=== PATIENT | male | born 1930 | race Caucasian/White ===

== ENCOUNTER 2017-04-17 09:42 | Observation (INO) | payer MEDICARE, BC ==
[2017-04-17] VITALS (12 sets, daily range): BP systolic 116–161; BP diastolic 61–87; PULSE 106–147; RESP 20–36; TEMP 96.9–100.3; O2SAT 95–98
[~2017-04-17] VITALS: Ht 180.3 cm; Wt 56.0 kg
[~2017-04-17 09:42] MED LIST: ADVA250A INH; IPRA17I INH; PRED10PA PO; PRED50 PO; ZITH250T PO
[2017-04-17] MEDS: RESP: ALBUTEROL 2.5 MG/IPRATROPIUM 0.5 MG NEB (SCH) INH ×2 (09:55→09:56)
--- NOTE | 2017-04-17 09:55 | PD ---
HPI Chief Complaint: sob Time Seen by Provider: 09:51 Travel History International Travel<30 days: No Contact w/Intl Traveler<30days: No History of Present Illness HPI 86yo M with PMH of COPD presents to the ED with c/o worsening sob for 2-3 days. +Cough. Pt is oxygen dependent and on 3L NC. Denies any fever, chest pain, n /v, abdominal pain, focal weakness or numbness. 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 [facility] Past Medical History Arthritis: Yes Asthma: No Blood Disorders: No Cancer: No Cardiovascular Problems: No COPD: Yes Diminished Hearing: No Endocrine: No Genitourinary: No Immune Disorder: No Musculoskeletal: Yes Neurologic: No Psychiatric: No Reproductive: No Respiratory: Yes ("SPOTS ON LUNGS" NOT DOING ANYTHING FOR) Sleep Apnea: No Past Surgical History Abdominal Surgery: Yes (WILIAM) Body Medical Devices: HYPOGLYCEMIA Cholecystectomy: Yes Genitourinary Surgery: Yes (TUMORS IN BLADDER) Oral Surgery: Yes (TONSILLECTOMY) Tonsillectomy: Yes Other Surgery: Yes Social History Alcohol Use: No Tobacco Use: No Substance Use: No Allergies-Medications (Allergen,Severity, Reaction): Coded Allergies: No Known Allergies (Verified , 04/17/17) Reported Meds & Prescriptions Reported Meds & Active Scripts Active Reported Duoneb (Ipratropium-Albuterol Neb) 0.5-2.5 Mg/3 Ml Neb 1 Nebule INH Q4HR NEB Mucinex (Guaifenesin) 1,200 Mg Tab.er.12h 600 Mg PO DAILY Ventolin Hfa 18 GM Inh (Albuterol Sulfate) 90 Mcg/Act Aer 2 Puff INH Q4-6H PRN Breo Ellipta Inh (Fluticasone/Vilanterol) 200-25 Mcg/Act Inh 1 Puff INH DAILY Use daily at the same time. Prednisone 10 Mg Tab 10 Mg PO DAILY Review of Systems Except as stated in HPI: all other systems reviewed are Neg Physical Exam Narrative GENERAL: 86yo M in moderate distress. SKIN: Focused skin assessment warm/dry. HEAD: Atraumatic. Normocephalic. EYES: Pupils equal and round. No scleral icterus. No injection or drainage. ENT: No nasal bleeding or discharge. Mucous membranes pink and moist. NECK: Trachea midline. No JVD. CARDIOVASCULAR: Regular rate and rhythm. No murmur appreciated. RESPIRATORY: + accessory muscle use. +Suprasternal retractions. Coarse breath sounds bilaterally. Breath sounds equal bilaterally. GASTROINTESTINAL: Abdomen soft, non-tender, nondistended. MUSCULOSKELETAL: No obvious deformities. No clubbing. No cyanosis. No edema. NEUROLOGICAL: Awake and alert. No obvious cranial nerve deficits. Motor grossly within normal limits. Normal speech. PSYCHIATRIC: Appropriate mood and affect; insight and judgment normal. Data Data Last Documented VS Vital Signs Date Time Temp Pulse Resp B/P Pulse Ox O2 Delivery O2 Flow Rate FiO2 04/17/17 12:00 118 20 118/61 95 Nasal Cannula 3 04/17/17 10:13 100.0 Orders Complete Blood Count With Diff (04/17/17 09:49) Basic Metabolic Panel (Bmp) (04/17/17 09:49) B-Type Natriuretic Peptide (04/17/17 09:49) Act Partial Throm Time (Ptt) (04/17/17 09:49) Prothrombin Time / Inr (Pt) (04/17/17 09:49) Magnesium (Mg) (04/17/17 09:49) Ckmb (Isoenzyme) Profile (04/17/17 09:49) Troponin I (04/17/17 09:49) Arterial Blood Gas (Abg) (04/17/17 09:49) Blood Culture (04/17/17 09:49) Iv Access Insert/Monitor (04/17/17 09:49) Ecg Monitoring (04/17/17 09:49) Oximetry (04/17/17 09:49) Oxygen Administration (04/17/17 09:49) Chest, Single Ap (04/17/17 09:49) Sodium Chloride 0.9% Flush (Ns Flush) (04/17/17 10:00) Methylprednisolone So Succ Inj (Solumedr (04/17/17 10:00) Albuterol-Ipratropium Neb (Duoneb Neb) (04/17/17 10:00) Sodium Chlor 0.9% 1000 Ml Inj (Ns 1000 M (04/17/17 10:00) Lactic Acid Sepsis Protocol (04/17/17 09:50) Ceftriaxone Inj (Rocephin Inj) (04/17/17 10:45) Azithromycin Inj (Zithromax Inj) (04/17/17 10:45) Vancomycin Inj (Vancomycin Inj) (04/17/17 11:00) Piperacil-Tazo 2.25 Gm Premix (Zosyn 2.2 (04/17/17 11:00) Sodium Chlor 0.9% 1000 Ml Inj (Ns 1000 M (04/17/17 11:00) Admit Order (Ed Use Only) (04/17/17 12:19) Labs Laboratory Tests Test 04/17/17 04/17/17 04/17/17 09:57 09:58 11:07 White Blood Count 20.0 TH/MM3 Red Blood Count 4.57 MIL/MM3 Hemoglobin 13.4 GM/DL Hematocrit 42.1 % Mean Corpuscular Volume 92.0 FL Mean Corpuscular Hemoglobin 29.4 PG Mean Corpuscular Hemoglobin 31.9 % Concent Red Cell Distribution Width 13.6 % Platelet Count 342 TH/MM3 Mean Platelet Volume 7.4 FL Neutrophils (%) (Auto) 87.8 % Lymphocytes (%) (Auto) 3.2 % Monocytes (%) (Auto) 6.4 % Eosinophils (%) (Auto) 0.3 % Basophils (%) (Auto) 2.3 % Neutrophils # (Auto) 17.5 TH/MM3 Lymphocytes # (Auto) 0.6 TH/MM3 Monocytes # (Auto) 1.3 TH/MM3 Eosinophils # (Auto) 0.1 TH/MM3 Basophils # (Auto) 0.5 TH/MM3 CBC Comment AUTO DIFF Differential Total Cells 100 Counted Neutrophils % (Manual) 81 % Band Neutrophils % 10 % Lymphocytes % 1 % Monocytes % 7 % Eosinophils % 1 % Neutrophils # (Manual) 18.2 TH/MM3 Differential Comment FINAL DIFF MANUAL Platelet Estimate NORMAL Platelet Morphology Comment NORMAL Red Cell Morphology Comment NORMAL Prothrombin Time 11.0 SEC Prothromb Time International 1.0 RATIO Ratio Activated Partial 29.4 SEC Thromboplast Time Lactic Acid Level 1.7 mmol/L B-Type Natriuretic Peptide 11 PG/ML Blood Gas Puncture Site LT RADIAL Blood Gas Patient Temperature 98.6 Blood Gas HCO3 32 mmol/L Blood Gas Base Excess 7.7 mmol/L Blood Gas Oxygen Saturation 93 % Arterial Blood pH 7.46 Arterial Blood Partial 46 mmHG Pressure CO2 Arterial Blood Partial 69 mmHG Pressure O2 Arterial Blood Oxygen Content 16.4 Vol % Arterial Blood 2.1 % Carboxyhemoglobin Arterial Blood Methemoglobin 1.0 % Blood Gas Hemoglobin 12.6 G/DL Oxygen Delivery Device NASAL CANNULA Blood Gas Liter Flow 3 L/M Blood Gas Inspired Oxygen 32 % Sodium Level 141 MEQ/L Potassium Level 3.7 MEQ/L Chloride Level 101 MEQ/L Carbon Dioxide Level 33.3 MEQ/L Anion Gap 7 MEQ/L Blood Urea Nitrogen 13 MG/DL Creatinine 0.48 MG/DL Estimat Glomerular Filtration 166 ML/MIN Rate Random Glucose 133 MG/DL Calcium Level 8.9 MG/DL Magnesium Level 2.2 MG/DL Total Creatine Kinase 15 U/L Troponin I LESS THAN 0.02 NG/ML MDM Medical Decision Making Medical Screen Exam Complete: Yes Emergency Medical Condition: Yes Interpretation(s) EKG: Sinus tachycardia at 133 bpm. Normal axis. RAD. Differential Diagnosis COPD exacerbation vs. Pneumonia vs. ACS vs. CHF vs. PE Narrative Course 86yo M with sob for 2-3 days. Pt follows with roofer vinyl coating Dr. Bowen and states finished a course of cefuroxime in February and another course of cefuroxime 03/31/17-04/07/17. Pt was in sinus tachycardia in the 130s on arrival. Coarse breath sounds bilaterally. Pt given duonebs x3 and methylprednisolone. Labs reviewed, leukocytosis at 20,000 with 10% bands. BNP 11. Lactic acid 1.7. Troponin negative. Pt was initially saturating in the 80s on 3 L nasal cannula on his own oxygen but his tank is almost empty and he was saturating at 94% on our 3L NC. CXR showed background emphysema and bilateral mid upper zone airspace consolidation peripherally. 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 Pt already knows this. States he was told that he would not be a candidate for chemo or radiation so he does not want further work up such as biopsy. Pt given NS IVF x2 and heart rate has decreased to 110s. Pt given vancomycin and zosyn. Pt reevaluated at bedside and states sob improved after treatments. Discussed with hospitalist Dr. [place] and accepted to his service. Critical Care Narrative Aggregate critical care time was 50 minutes. Time to perform other separately billable procedures was not included in the critical care time. My time did not include minutes spent treating any other patients simultaneously or on activities that did not directly contribute to the patient's treatment. The services I provided to this patient were to treat and/or prevent clinically significant deterioration that could result in: cardiovascular collapse or . I provided critical care services requiring my management, as noted below: Chart data review, documentation time, medication orders and management, vital sign assessments/reviewing monitor data, ordering and reviewing lab tests, ordering and interpreting/reviewing x-rays and diagnostic studies, care of the patient and discussion of the patient with the admitting physicians. Sepsis Criteria SIRS Criteria (2 or more): Heart rate over 90, WBC > 97881, < 4000 or > 10% bands Sepsis Criteria (SIRS+source): Infect source susp/known Diagnosis Primary Impression: Bilateral pneumonia Qualified Code: J18.9 - Pneumonia of both lungs due to infectious organism, unspecified part of lung Admitting Information Admitting Physician Requests: Admit Little Keating DO April 17, 2017 09:55
[2017-04-17] MEDS ORDERED: methylPREDNISolone SOD SUCC 125 MG/2 ML VIAL IVP ONE (10:00)
[2017-04-17] MEDS ORDERED: SODIUM CHLORIDE 0.9% FLUSH 10 ML FLUSH IVF PRN (10:00)
[2017-04-17] MEDS ORDERED: SODIUM CHLOR 0.9% 1000 ML INJ 1,000 ML IV ONE ×2 (10:00→11:00)
[2017-04-17 10:07] LABS: BLOOD GAS BASE EXCESS 7.7 mmol/L (-2-2); BLOOD GAS CARBOXYHEMOGLOBIN 2.1 % (0-4); BLOOD GAS HCO3 32 mmol/L (22-26); BLOOD GAS O2 HGB SATURATION 93 % (90-100); BLOOD GAS OXYGEN CONTENT 16.4 Vol % (12.0-20.0); BLOOD GAS PCO2 46 mmHG (38-42); BLOOD GAS PO2 69 mmHG (61-120); BLOOD GAS TOTAL HGB 12.6 G/DL (12.0-16.0); CRITICAL VALUE NO; DRAW SITE LT RADIAL; FIO2 32 %; LITER FLOW 3 L/M; NUMBER OF ARTERIAL PUNCTURES 1; OXYGEN DEVICE NASAL CANNULA; TEMP CORR TO 98.6; ULNAR PULSE PRESENT
[2017-04-17 10:08] LABS: STAT YES
[2017-04-17] MEDS ORDERED: GUAI1TAB18 PO (10:11)
[2017-04-17] MEDS ORDERED: VENTAER INH (10:11)
[2017-04-17] MEDS ORDERED: PRED10 PO (10:11)
[2017-04-17] MEDS ORDERED: FLUT1INH7 INH (10:11)
[2017-04-17] MEDS ORDERED: IPRASOL INH (10:11)
[2017-04-17 10:18] LABS: AUTOMATED NEUTROPHIL # 17.5 TH/MM3 (1.8-7.7); BASOPHIL # 0.5 TH/MM3 (0-0.2); BASOPHIL % 2.3 % (0.0-2.0); EOSINOPHIL # 0.1 TH/MM3 (0-0.4); EOSINOPHIL % 0.3 % (0.0-4.0); HEMATOCRIT 42.1 % (39.0-51.0); LYMPH % 3.2 % (9.0-44.0); LYMPHOCYTE # 0.6 TH/MM3 (1.0-4.8); MEAN CORPUSCULAR HEMOGLOBIN 29.4 PG (27.0-34.0); MEAN CORPUSCULAR HGB CONC 31.9 % (32.0-36.0); MONO % 6.4 % (0.0-8.0); NEUT % 87.8 % (16.0-70.0); PLATELET COUNT 342 TH/MM3 (150-450); RED BLOOD COUNT 4.57 MIL/MM3 (4.50-5.90); RED CELL DISTRIBUTION WIDTH 13.6 % (11.6-17.2)
[2017-04-17 10:19] LABS: APTT (PATIENT) 29.4 SEC (24.3-30.1); HEMO FLAGS AUTO DIFF
[2017-04-17 10:35] LABS: BANDS 10 % (0-6); EOSINOPHILS 1 % (0-4); NEUTROPHIL # MANUAL DIFF 18.2 TH/MM3 (1.8-7.7); PLATELET ESTIMATE SMEAR NORMAL (NORMAL); PLATELET MORPHOLOGY NORMAL (NORMAL); POLYS (SEG NEUTROPHILS) 81 % (16-70); SCAN/DIFF FINAL DIFF MANUAL; WBC DIFF SAMPLE 100
[2017-04-17] MEDS ORDERED: AZITHROMYCIN INJ 500 MG in SODIUM CHLOR 0.9% 250 ML INJ 250 ML IV ONE (10:45)
[2017-04-17] MEDS ORDERED: cefTRIAXone INJ 1,000 MG in SODIUM CHLORIDE 0.9% INJ 100 ML IV ONE (10:45)
--- NOTE | 2017-04-17 10:52 | RADHPO ---
EXAM DATE/TIME: 04/17/2017 10:37 [place] COMPARISON: CT PULMONARY ANGIOGRAM, May 27, 2016, 14:56. CHEST SINGLE AP, September 01, 2016, 13:14. INDICATIONS : Shortness of breath. MEDICAL HISTORY : Chronic obstructive pulmonary disease. Bronchitis SURGICAL HISTORY : None. ENCOUNTER: Initial ACUITY: 1 day PAIN SCORE: 0/10 LOCATION: FINDINGS: Portable AP view of the chest demonstrates a normal-sized cardiac silhouette. Lungs remain hyperinfla divya. The spiculated left lower lobe pulmonary nodule remains present and similar to the prior chest x -ray. There is new bilateral peripheral mid to upper lung zone airspace consolidation. No pleural eff usion or pneumothorax is identified. Bones and soft tissues demonstrate no acute finding. CONCLUSION: 1. Background emphysema with bilateral mid-upper lung zone airspace consolidation peripherally. 2. The suspicious spiculated left lower lobe pulmonary mass does not appear significantly changed com pared to the prior chest x-ray. The appearance, based on prior CT, remains suspicious for pulmonary n eoplasm. Ryan King MD on April 17, 2017 at 10:47 Board Certified Radiologist. This report was verified electronically.
[2017-04-17] MEDS ORDERED: VANCOMYCIN INJ 1,000 MG in SODIUM CHLOR 0.9% 250 ML INJ 250 ML IV ONE (11:00)
[2017-04-17] MEDS ORDERED: PIPERACIL-TAZO 2.25 GM PREMIX 50 ML IV ONE (11:00)
[2017-04-17 11:39] LABS: CHLORIDE 101 MEQ/L (98-107); POTASSIUM 3.7 MEQ/L (3.5-5.1); SODIUM (NA) 141 MEQ/L (136-145)
[2017-04-17 11:43] LABS: ANION GAP 7 MEQ/L (5-15); BICARBONATE 33.3 MEQ/L (21.0-32.0); BLOOD UREA NITROGEN 13 MG/DL (7-18); MAGNESIUM 2.2 MG/DL (1.5-2.5)
[2017-04-17 11:47] LABS: GLOMERULAR FILTRATION RATE 166 ML/MIN (>89)
[2017-04-17 11:52] LABS: CREATINE KINASE 15 U/L (39-308)
[2017-04-17] MEDS ORDERED: LORazepam 1 MG TAB PO PRN (13:00)
[2017-04-17] MEDS ORDERED: predniSONE 10 MG TAB PO SCH (13:00)
[2017-04-17] MEDS ORDERED: Vancomycin Consult Pharmacy 1 EA OTHER SCH (13:00)
[2017-04-17] MEDS ORDERED: ACETAMINOPHEN 325 MG TAB PO PRN ×2 (13:00)
[2017-04-17] MEDS ORDERED: MORPHINE SULFATE ORAL SOLN 10 MG/0.5 ML SYRINGE SL PRN (13:00)
[2017-04-17] MEDS ORDERED: ONDANSETRON HCL 4 MG/2 ML VIAL IVP PRN (13:00)
[2017-04-17] MEDS ORDERED: SODIUM CHLORIDE 0.9% FLUSH 10 ML FLUSH IV FLUSH PRN (13:00)
[2017-04-17] MEDS ORDERED: RESP: ALBUTEROL 2.5 MG/IPRATROPIUM 0.5 MG NEB (PRN) NEB (13:00)
[2017-04-17] MEDS ORDERED: NALOXONE HCL 0.4 MG/ML AMP IV PRN (13:00)
--- NOTE | 2017-04-17 13:10 | HHI.HP ---
HPI Service [facility] Primary Care Physician Sulma Cunningham MD Admission Diagnosis Pneumonia Diagnoses: Chief Complaint: Shortness of breath Travel History International Travel<30 Days: No Contact w/Intl Traveler <30 Da: No Traveled to Known Affected Are: No History of Present Illness The patient is an 86-year-old male with a past medical history of COPD on home oxygen and a lung mass who is presenting to the hospital with shortness of breath. The patient said that he had a bout of pneumonia a couple of years ago and since then he has never seemed to recover. He says he has a significant history of smoking a pack a day for about 50 years. He is currently on home oxygen and says recently he has been increased to 3 L of continuous oxygen. He follows with a soil sampler and has recently been on antibiotics for a lung infection. He states he is still on prednisone as prescribed. The patient never wanted his lung mass worked up because he didn't want to go through chemotherapy or radiation. He states he was told he has a suspicious lung mass but it has never been diagnosed as cancer. He does not recall ever having any PET scans done. The patient says he has been coughing a lot. He does have mucus production. He denies any fever. He says over the past week he has been eating less. He says he has probably had weight loss. He denies any constipation or diarrhea. He denies any discomfort on urination. He denies any pain. He has been ambulating without a cane or a walker. He sometimes drives. He says he would like to go home as soon as possible. He indicates he is not interested in aggressive management of his condition. Review of Systems Except as stated in HPI: all other systems reviewed are Neg Past Family Social History Past Medical History COPD on home oxygen Suspicious lung mass Pneumonia Bladder tumor status post removal Past Surgical History Tonsillectomy Cholecystectomy Allergies: Coded Allergies: No Known Allergies (Verified , 04/17/17) Active Ordered Medications Current Medications Medications (Trade) Dose Ordered Sig/Mehdi Route Start Time Stop Time Status Last Admin (NS Flush) 2 ml UNSCH PRN IVF 04/17/17 10:00 (Deltasone) 10 mg DAILY PO 04/17/17 13:00 (Breo Ellipta 100-25 Inh) 1 puff DAILY INH 04/18/17 09:00 (Roxanol Liq) 5 mg Q4H PRN SL 04/17/17 13:00 UNV Lorazepam 1 mg 1 mg Q8H PRN PO 04/17/17 13:00 UNV Piperacillin Sod/ Tazobactam Sod 100 ml @ 200 mls/hr Q6H IV 04/17/17 17:00 UNV Pharmacy Profile Note 0 ml @ 0 mls/hr UNSCH OTHER 04/17/17 13:00 UNV (Vancomycin Inj/ NS 250 ml Inj) 257.5 ml @ 257.5 mls/ hr Q12H IV 04/17/17 23:00 UNV (NS Flush) 2 ml UNSCH PRN IV FLUSH 04/17/17 13:00 UNV (NS Flush) 2 ml BID IV FLUSH 04/17/17 21:00 UNV (Tylenol) 650 mg Q4H PRN PO 04/17/17 13:00 UNV (Zofran Inj) 4 mg Q6H PRN IVP 04/17/17 13:00 UNV (Tylenol) 650 mg Q6H PRN PO 04/17/17 13:00 UNV (Narcan Inj) 0.4 mg UNSCH PRN IV 04/17/17 13:00 UNV (Felecia-Colace) 1 tab BID PO 04/17/17 21:00 UNV Family History The patient denies pertinent family history Social History The patient says he smoked one pack a day for about 50 years. 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 Physical Exam Vital Signs Vital Signs Date Time Temp Pulse Resp B/P Pulse Ox O2 Delivery O2 Flow Rate FiO2 04/17/17 12:00 118 20 118/61 95 Nasal Cannula 3 04/17/17 11:00 112 20 132/73 96 Nasal Cannula 3 04/17/17 10:13 100.0 122 20 135/65 97 Nasal Cannula 3 04/17/17 10:02 22 96 Nasal Cannula 3 04/17/17 09:55 95 Nasal Cannula 3.00 04/17/17 09:51 100.3 147 22 161/87 97 04/17/17 09:50 97 Nasal Cannula 3 04/17/17 09:50 97 Nasal Cannula 3 04/17/17 09:45 129 22 161/87 97 Nasal Cannula 3 Physical Exam GENERAL: This is a very pleasant cachectic male, in no apparent distress. SKIN: No rashes, ecchymoses or lesions. Cool and dry. HEAD: Atraumatic. Normocephalic. No temporal or scalp tenderness. EYES: Pupils equal round and reactive. Extraocular motions intact. No scleral icterus. No injection or drainage. ENT: Nose without bleeding, purulent drainage or septal hematoma. Throat without erythema, tonsillar hypertrophy or exudate. Uvula midline. Airway patent. NECK: Trachea midline. No JVD or lymphadenopathy. Supple, nontender, no meningeal signs. CARDIOVASCULAR: Tachycardic without murmurs, gallops, or rubs. RESPIRATORY: Bilateral coarse breath sounds. Mild wheezing appreciated. GASTROINTESTINAL: Abdomen soft, non-tender, nondistended. No hepato-splenomegaly , or palpable masses. No guarding or rebound. MUSCULOSKELETAL: Extremities without clubbing, cyanosis, or edema. No joint tenderness, effusion, or edema noted. NEUROLOGICAL: Awake and alert. Cranial nerves II through XII intact. Motor and sensory grossly within normal limits. Five out of 5 muscle strength in all muscle groups. Normal speech. PSYCH: Mood and affect appropriate. Laboratory Laboratory Tests Test 04/17/17 04/17/17 04/17/17 09:57 09:58 11:07 White Blood Count 20.0 Red Blood Count 4.57 Hemoglobin 13.4 Hematocrit 42.1 Mean Corpuscular Volume 92.0 Mean Corpuscular Hemoglobin 29.4 Mean Corpuscular Hemoglobin 31.9 Concent Red Cell Distribution Width 13.6 Platelet Count 342 Mean Platelet Volume 7.4 Neutrophils (%) (Auto) 87.8 Lymphocytes (%) (Auto) 3.2 Monocytes (%) (Auto) 6.4 Eosinophils (%) (Auto) 0.3 Basophils (%) (Auto) 2.3 Neutrophils # (Auto) 17.5 Lymphocytes # (Auto) 0.6 Monocytes # (Auto) 1.3 Eosinophils # (Auto) 0.1 Basophils # (Auto) 0.5 CBC Comment AUTO DIFF Differential Total Cells 100 Counted Neutrophils % (Manual) 81 Band Neutrophils % 10 Lymphocytes % 1 Monocytes % 7 Eosinophils % 1 Neutrophils # (Manual) 18.2 Differential Comment FINAL DIFF MANUAL Platelet Estimate NORMAL Platelet Morphology Comment NORMAL Red Cell Morphology Comment NORMAL Prothrombin Time 11.0 Prothromb Time International 1.0 Ratio Activated Partial 29.4 Thromboplast Time Lactic Acid Level 1.7 B-Type Natriuretic Peptide 11 Blood Gas Puncture Site LT RADIAL Blood Gas Patient Temperature 98.6 Blood Gas HCO3 32 Blood Gas Base Excess 7.7 Blood Gas Oxygen Saturation 93 Arterial Blood pH 7.46 Arterial Blood Partial 46 Pressure CO2 Arterial Blood Partial 69 Pressure O2 Arterial Blood Oxygen Content 16.4 Arterial Blood 2.1 Carboxyhemoglobin Arterial Blood Methemoglobin 1.0 Blood Gas Hemoglobin 12.6 Oxygen Delivery Device NASAL CANNULA Blood Gas Liter Flow 3 Blood Gas Inspired Oxygen 32 Sodium Level 141 Potassium Level 3.7 Chloride Level 101 Carbon Dioxide Level 33.3 Anion Gap 7 Blood Urea Nitrogen 13 Creatinine 0.48 Estimat Glomerular Filtration 166 Rate Random Glucose 133 Calcium Level 8.9 Magnesium Level 2.2 Total Creatine Kinase 15 Troponin I LESS THAN 0.02 Date/Time Procedure Status Source Growth 04/17/17 10:07 Aerobic Blood Culture Received Blood Peripheral Pending 04/17/17 10:07 Anaerobic Blood Culture Received Blood Peripheral Pending Result Diagram: 04/17/17 0957 04/17/17 1107 Imaging Last Impressions Chest X-Ray 04/17/17 0949 Signed Impressions: Service Date/Time: Monday, April 17, 2017 10:37 - CONCLUSION: 1. Background emphysema with bilateral mid-upper lung zone airspace consolidation peripherally. 2. The suspicious spiculated left lower lobe pulmonary mass does not appear significantly changed compared to the prior chest x-ray. The appearance, based on prior CT, remains suspicious for pulmonary neoplasm. Ryan King MD Assessment and Plan Assessment and Plan Acute on chronic respiratory failure/ suspicious lung mass The patient has COPD and is on home oxygen. He has a known suspicious lung mass that he does not want further workup for. He presented to the hospital with increased coughing and shortness of breath. The patient is interested in home hospice services. He is interested in increased quality of life and would rather not be aggressive with his treatment. He confirms a DNR status. - continue vancomycin and Zosyn to treat for post-obstructive pneumonia. - standing and as needed Duonebs. - sputum culture requested. - Continue Breo Ellipta. - continue prednisone. - morphine PO for air hunger. Levsin for secretions. Ativan for anxiety. Codeine for cough. - hospice and case management consults have been placed. Anticipate d/c to home hospice in the AM. HTN Likely exacerbated by respiratory distress. - Vasotec as needed. Leukocytosis Likely s/t steroids. May also be s/t lung mass and pneumonia. - treatment as above. Hyperglycemia Likely s/t steroids. - wean steroids as tolerated. PPx: SCDs Code Status DNR Discussed Condition With Pt, pt's family, London Ward DO April 17, 2017 13:10
[2017-04-17] MEDS ORDERED: HYOSCYAMINE SOLN 0.125 MG/ML 15 ML BTL PO PRN (13:15)
[2017-04-17] MEDS ORDERED: guaiFENesin/CODEINE SYRUP 200 MG/20 MG/10 ML CUP PO PRN (13:15)
[2017-04-17] MEDS ORDERED: ENALAPRILAT 1.25 MG/ML VIAL IV PUSH PRN (13:30)
[2017-04-17] MEDS: RESP: ALBUTEROL 2.5 MG/IPRATROPIUM 0.5 MG NEB (SCH) NEB ×3 (14:03→20:02)
[2017-04-17] MEDS: PIPERACIL-TAZO 4.5 GM PREMIX 100 ML IV SCH (17:06)
[2017-04-17] MEDS ORDERED: guaiFENesin E.R. 600 MG TAB PO ONE (21:00)
[2017-04-17] MEDS: DOCUSATE SODIUM 50 MG/SENNA 8.6 MG TAB PO SCH (21:00)
[2017-04-17] MEDS: SODIUM CHLORIDE 0.9% FLUSH 10 ML FLUSH IV FLUSH SCH (21:48)
[2017-04-18] VITALS: BP 99/63; PULSE 75; RESP 20; TEMP 96.3; O2SAT 100
[2017-04-18] MEDS: PIPERACIL-TAZO 4.5 GM PREMIX 100 ML IV SCH ×3 (00:02→12:03)
[2017-04-18] MEDS: VANCOMYCIN INJ 800 MG in SODIUM CHLOR 0.9% 250 ML INJ 250 ML IV SCH ×2 (00:37→13:01)
[2017-04-18] MEDS: RESP: ALBUTEROL 2.5 MG/IPRATROPIUM 0.5 MG NEB (SCH) NEB ×2 (07:51→11:00)
[2017-04-18 08:00] VITALS: BP 136/81; PULSE 110; RESP 19; TEMP 97.9; O2SAT 94
--- NOTE | 2017-04-18 08:35 | EKG ---
Date Performed: 04/17/2017 Time Performed: 09:42:34 PTAGE: 86 years EKG: Sinus tachycardia Short IA interval Rightward axis Septal T wave changes are nonspecific Shankar rderline ECG PREVIOUS TRACING : 09/01/2016 12.59 No significant change from previous tracing noted. DOCTOR: Yunior Rg Interpretating Date/Time 04/18/2017 08:33:21
[2017-04-18] MEDS ORDERED: PRED20 PO (08:39)
[2017-04-18] MEDS ORDERED: LEVO750T3 PO (08:39)
[2017-04-18] MEDS ORDERED: MORP20SO2 SL (08:39)
[2017-04-18] MEDS ORDERED: HYOS0.1231 PO (08:39)
[2017-04-18] MEDS ORDERED: GUAISYP4 PO (08:39)
[2017-04-18] MEDS ORDERED: LORA-474 PO (08:39)
--- NOTE | 2017-04-18 08:42 | HHI.DCPOC ---
Discharge Care Plan Diagnosis: (1) COPD with acute exacerbation (2) Lung mass (3) Sepsis Goals to Promote Your Health * To prevent worsening of your condition and complications * To maintain your health at the optimal level Directions to Meet Your Goals Take your medications as prescribed Follow your dietary instruction Follow activity as directed Keep your appointments as scheduled Take your immunizations and boosters as scheduled If your symptoms worsen call your PCP, if no PCP go to Urgent Care Center or Emergency Room Smoking is Dangerous to Your Health. Avoid second hand smoke Call the 24-hour hour crisis hotline for domestic abuse at London Fine DO April 18, 2017 08:42
[2017-04-18] MEDS ORDERED: MORPHINE SULFATE ORAL SOLN 10 MG/0.5 ML SYRINGE SL ONE (08:45)
--- NOTE | 2017-04-18 08:48 | HHI.PR ---
Subjective Remarks The patient says he feels a lot better this morning. He said he's been using the incentive spirometer and thinks it helps a lot. He says he talked to the hospice team yesterday and feels like he would like to give it a shot. He requested a dose of morphine. No acute complaints at this time. He would like to go home today. Objective Vitals Vital Signs Date Time Temp Pulse Resp B/P Pulse Ox O2 Delivery O2 Flow Rate FiO2 04/18/17 08:00 97.9 110 19 136/81 94 04/18/17 00:00 96.3 75 20 99/63 100 04/17/17 20:02 97 Nasal Cannula 3.00 04/17/17 20:00 98.7 106 20 116/67 97 04/17/17 14:31 96.9 120 36 142/84 98 04/17/17 13:45 98 Nasal Cannula 3 04/17/17 13:28 22 98 Nasal Cannula 3 04/17/17 13:00 119 20 118/69 98 Nasal Cannula 3 04/17/17 12:00 118 20 118/61 95 Nasal Cannula 3 04/17/17 11:00 112 20 132/73 96 Nasal Cannula 3 04/17/17 10:13 100.0 122 20 135/65 97 Nasal Cannula 3 04/17/17 10:02 22 96 Nasal Cannula 3 04/17/17 09:55 95 Nasal Cannula 3.00 04/17/17 09:51 100.3 147 22 161/87 97 04/17/17 09:50 97 Nasal Cannula 3 04/17/17 09:50 97 Nasal Cannula 3 04/17/17 09:45 129 22 161/87 97 Nasal Cannula 3 I/O 04/17/17 04/17/17 04/17/17 04/18/17 04/18/17 04/18/17 07:00 15:00 23:00 07:00 15:00 23:00 Intake Total 3600 ml 1180 ml 573 ml 60 ml Output Total 925 ml 375 ml Balance 3600 ml 255 ml 573 ml -315 ml Intake Oral 1080 ml 60 ml IV Total 3600 ml 100 ml 573 ml Output Urine Total 925 ml 375 ml # Voids 1 1 # Bowel Movements 0 0 Result Diagram: 04/17/17 0957 04/17/17 1107 Imaging Last Impressions Chest X-Ray 04/17/17 0949 Signed Impressions: Service Date/Time: Monday, April 17, 2017 10:37 - CONCLUSION: 1. Background emphysema with bilateral mid-upper lung zone airspace consolidation peripherally. 2. The suspicious spiculated left lower lobe pulmonary mass does not appear significantly changed compared to the prior chest x-ray. The appearance, based on prior CT, remains suspicious for pulmonary neoplasm. Ryan King MD Objective Remarks GENERAL: This is a very pleasant cachectic male, in no apparent distress. SKIN: No rashes, ecchymoses or lesions. Cool and dry. HEAD: Atraumatic. Normocephalic. No temporal or scalp tenderness. EYES: Pupils equal round and reactive. Extraocular motions intact. No scleral icterus. No injection or drainage. ENT: Nose without bleeding, purulent drainage or septal hematoma. Throat without erythema, tonsillar hypertrophy or exudate. Uvula midline. Airway patent. NECK: Trachea midline. No JVD or lymphadenopathy. Supple, nontender, no meningeal signs. CARDIOVASCULAR: Regular rate and rhythm without murmurs, gallops, or rubs. RESPIRATORY: Bilateral coarse breath sounds. Mild wheezing appreciated. GASTROINTESTINAL: Abdomen soft, non-tender, nondistended. No hepato-splenomegaly , or palpable masses. No guarding or rebound. MUSCULOSKELETAL: Extremities without clubbing, cyanosis, or edema. No joint tenderness, effusion, or edema noted. NEUROLOGICAL: Awake and alert. Cranial nerves II through XII intact. Motor and sensory grossly within normal limits. Five out of 5 muscle strength in all muscle groups. Normal speech. PSYCH: Mood and affect appropriate. Medications and IVs Current Medications Medications (Trade) Dose Ordered Sig/Mehdi Route Start Time Stop Time Status Last Admin (Breo Ellipta 100-25 Inh) 1 puff DAILY INH 04/18/17 09:00 (Roxanol Liq) 5 mg Q4H PRN SL 04/17/17 13:00 Lorazepam 1 mg 1 mg Q8H PRN PO 04/17/17 13:00 Piperacillin Sod/ Tazobactam Sod 100 ml @ 200 mls/hr Q6H IV 04/17/17 17:00 04/18/17 04:17 Pharmacy Profile Note 0 ml @ 0 mls/hr UNSCH OTHER 04/17/17 13:00 (Vancomycin Inj/ NS 250 ml Inj) 258 ml @ 257.5 mls/ hr Q12H IV 04/18/17 01:00 04/18/17 00:37 (NS Flush) 2 ml UNSCH PRN IV FLUSH 04/17/17 13:00 (NS Flush) 2 ml BID IV FLUSH 04/17/17 21:00 04/17/17 21:48 (Tylenol) 650 mg Q4H PRN PO 04/17/17 13:00 (Zofran Inj) 4 mg Q6H PRN IVP 04/17/17 13:00 (Tylenol) 650 mg Q6H PRN PO 04/17/17 13:00 (Narcan Inj) 0.4 mg UNSCH PRN IV 04/17/17 13:00 (Felecia-Colace) 1 tab BID PO 04/17/17 21:00 (Deltasone) 50 mg DAILY PO 04/18/17 09:00 (Robitussin Ac 200-20 Mg/10 ml Liq) 10 ml Q4H PRN PO 04/17/17 13:15 (Levsin Liq) 0.125 mg Q4H PRN PO 04/17/17 13:15 (Vasotec Inj) 1.25 mg Q6H PRN IV PUSH 04/17/17 13:30 Miscellaneous Information SPECIFIC LAB TO BE DRAWN:VANCOMY... ONCE ONCE .XX 04/19/17 00:45 04/19/17 00:46 (Roxanol Liq) 5 mg ONCE ONCE SL 04/18/17 08:45 04/18/17 08:46 A/P Assessment and Plan Acute on chronic respiratory failure/ suspicious lung mass The patient has COPD and is on home oxygen. He has a known suspicious lung mass that he does not want further workup for. He presented to the hospital with increased coughing and shortness of breath. The patient is interested in home hospice services. He is interested in increased quality of life and would rather not be aggressive with his treatment. He confirms a DNR status. Hospice consult appreciated. The pt is interested in being discharged with home hospice. - switch vancomycin and Zosyn to Levaquin to treat for post-obstructive pneumonia. - standing and as needed Duonebs. - sputum culture requested. - Continue Breo Ellipta. - continue prednisone taper. - morphine PO for air hunger. Levsin for secretions. Ativan for anxiety. Codeine for cough. - d/c to home hospice. web services manager aware. HTN Likely exacerbated by respiratory distress. Improved. - Vasotec as needed. Leukocytosis Likely s/t steroids. May also be s/t lung mass and pneumonia. - treatment as above. Hyperglycemia Likely s/t steroids. - wean steroids as tolerated. PPx: SCDs Discharge Planning D/c to home hospice. London Fine DO April 18, 2017 08:48
[2017-04-18] MEDS: DOCUSATE SODIUM 50 MG/SENNA 8.6 MG TAB PO SCH (08:50)
[2017-04-18] MEDS: SODIUM CHLORIDE 0.9% FLUSH 10 ML FLUSH IV FLUSH SCH (08:52)
[2017-04-18] MEDS ORDERED: predniSONE 50 MG TAB PO SCH (09:00)
[2017-04-18] MEDS ORDERED: FLUTICASONE 100 MCG/VILANTEROL 25 MCG INHALER INH SCH (09:00)
[2017-04-18 11:01] VITALS: O2SAT 96
[2017-04-18 12:00] VITALS: BP 119/62; PULSE 117; RESP 21; TEMP 99.4; O2SAT 97
[2017-04-19] MEDS ORDERED: PHARMACY ORDERED LAB ONE (00:45)
== END 2017-04-18 14:29 | disposition hospice, home (50) ==
LOC: PHED 09:42 → PHEDA 12:20 → INTOOBSV 12:20 → PH3A 13:56
PROVIDERS: ADMIT Hospitalist; ATTEND Hospitalist
DX: J44.0 Chronic obstructive pulmonary disease with (acute) lower respiratory infection (principal); J18.9 Pneumonia, unspecified organism; R91.1 Solitary pulmonary nodule; R00.0 Tachycardia, unspecified; R64 Cachexia; I10 Essential (primary) hypertension; R73.9 Hyperglycemia, unspecified; F41.9 Anxiety disorder, unspecified; M19.90 Unspecified osteoarthritis, unspecified site; Z87.891 Personal history of nicotine dependence; Z99.81 Dependence on supplemental oxygen; Z66 Do not resuscitate
CPT/HCPCS: 36600; 71010; 80048; 82550; 82805; 83605; 83735; 83880; 84484; 85007; 85027; 85610; 85730; 87040; 87070; 87077; 87186; 87205; 93005; 94640; 94664; 96361; 96365; 96367; 96375; 99291; G0378; J2543; J2930; J3370; J7030; J7050; J7512

== ENCOUNTER 2017-09-18 12:33 | Emergency (ER) | payer MEDICARE, BC ==
[~2017-09-18] VITALS: Ht 180.3 cm; Wt 50.0 kg
[~2017-09-18 12:33] MED LIST changes: -ADVA250A INH; +FLUT1INH7 INH; +GUAISYP4 PO; +HYOS0.1231 PO; -IPRA17I INH; +IPRASOL INH; +LEVO750T3 PO; +LORA-474 PO; +MORP20SO2 SL; -PRED10PA PO; +PRED20 PO; -PRED50 PO; +VENTAER INH; -ZITH250T PO
[2017-09-18 12:45] VITALS: BP 136/73; PULSE 116; RESP 26; TEMP 98.1; O2SAT 98
[2017-09-18] MEDS ORDERED: HYDROmorphone HCL PF 1 MG/ML VIAL IV PUSH ONE (13:15)
[2017-09-18] MEDS ORDERED: ONDANSETRON HCL 4 MG/2 ML VIAL IV PUSH ONE (13:15)
--- NOTE | 2017-09-18 13:34 | PD ---
HPI Chief Complaint: Fall Time Seen by Provider: 12:50 Travel History International Travel<30 days: No Contact w/Intl Traveler<30days: No Traveled to known affect area: No History of Present Illness HPI This is a 86-year-old woman with a history of bilateral pulmonary tumors, who is on hospice, who presents after having a mechanical fall on the bathroom. The patient states he fell to his side while in the bathroom and struck the back and flank on the toilet paper albarran. He denies loss of consciousness. He denies syncope. He states this was a mechanical fall. He has difficulty breathing from his pulmonary disease but denies any worsening difficulty breathing. He reports pain with inspiration and movement in his flank and lower left lateral back. As no head or neck pain. He does have a skin tear to his left upper arm and then mid chest. There is no hip pain or extremity deformity. PFSH Past Medical History Arthritis: Yes Asthma: No Blood Disorders: No Cancer: No Cardiovascular Problems: No COPD: Yes Diminished Hearing: No Endocrine: No Genitourinary: No Immune Disorder: No Musculoskeletal: Yes Neurologic: No Psychiatric: No Reproductive: No Respiratory: Yes (COPD) Sleep Apnea: No Past Surgical History Abdominal Surgery: Yes (WILIAM) Body Medical Devices: HYPOGLYCEMIA Cholecystectomy: Yes Genitourinary Surgery: Yes (TUMORS IN BLADDER) Insulin Pump: No Joint Replacement: No Oral Surgery: Yes (TONSILLECTOMY) Tonsillectomy: Yes Other Surgery: Yes Social History Alcohol Use: No Tobacco Use: No (QUIT >20 YRS AGO) Substance Use: No Allergies-Medications (Allergen,Severity, Reaction): Coded Allergies: No Known Allergies (Verified , 04/17/17) Reported Meds & Prescriptions Reported Meds & Active Scripts Active Guaifenesin AC Liq (Guaifenesin-Codeine Liq) 100-10 Mg/5 Ml Syrp 5 Ml PO Q4H PRN Prednisone 20 Mg Tab 20 Mg PO DIRECTED Take 60 MG daily x 4 days, then 40 MG x 4 days, then 20 MG daily x 4 days. Levofloxacin 750 Mg Tablet 750 Mg PO DAILY Morphine Liq (Morphine Sulfate) 20 Mg/Ml Liq 5 Mg SL Q4H PRN Ativan (Lorazepam) 1 Mg Tab 0.5 Mg PO Q6HR PRN Hyosyne Liq Drops (Hyoscyamine Sulfate) 0.125 Mg/Ml Soln 0.125 Mg PO Q4H PRN Reported Duoneb (Ipratropium-Albuterol Neb) 0.5-2.5 Mg/3 Ml Neb 1 Nebule INH Q4HR NEB Ventolin Hfa 18 GM Inh (Albuterol Sulfate) 90 Mcg/Act Aer 2 Puff INH Q4-6H PRN Breo Ellipta Inh (Fluticasone/Vilanterol) 200-25 Mcg/Act Inh 1 Puff INH DAILY Use daily at the same time. Review of Systems Except as stated in HPI: all other systems reviewed are Neg General / Constitutional: No: Fever, Chills HENT: No: Headaches, Neck Pain Cardiovascular: No: Chest Pain or Discomfort, Palpitations Respiratory: Positive: Cough, Shortness of Breath (chronic), Wheezing (chronic) Gastrointestinal: No: Nausea, Vomiting, Abdominal Pain Musculoskeletal: Positive: Pain (left flank and lower left rib posterior pain) , No: Weakness, Edema Skin: Positive Other Neurologic: Positive: Weakness, No: Headache, Change in Mentation Physical Exam Narrative GENERAL: Ill cachectic appearing gentleman in mild respiratory discomfort. SKIN: Focused skin assessment warm/dry. HEAD: Atraumatic. Normocephalic. EYES: Pupils equal and round. No scleral icterus. No injection or drainage. ENT: No nasal bleeding or discharge. Mucous membranes pink and moist. NECK: Trachea midline. Supple. CARDIOVASCULAR: Regular rate and rhythm. No murmur appreciated. RESPIRATORY: Coarse rhonchi bilaterally. Patient has left posterior lateral rib pain in the lower rib area. GASTROINTESTINAL: Abdomen soft, non-tender, nondistended. Left flank tenderness to palpation. No obvious bony deformity. No large hematoma appreciated. MUSCULOSKELETAL: Large skin tear to left upper deltoid area. He also has a 2 cm skin tear to the anterior chest. NEUROLOGICAL: Awake and alert. No obvious cranial nerve deficits. Motor grossly within normal limits. Normal speech. PSYCHIATRIC: Appropriate mood and affect; insight and judgment normal. Data Data Last Documented VS Vital Signs Date Time Temp Pulse Resp B/P (MAP) Pulse Ox O2 Delivery O2 Flow Rate FiO2 09/18/17 12:45 98.1 116 26 136/73 (94) 98 Orders Orders Complete Blood Count With Diff (09/18/17 13:08) Basic Metabolic Panel (Bmp) (09/18/17 13:08) Ct Abd/Pel W Iv Contrast(Rout) (09/18/17 13:08) Ondansetron Inj (Zofran Inj) (09/18/17 13:15) Hydromorphone Pf Inj (Dilaudid Pf Inj) (09/18/17 13:15) Ct Thorax/ Chest W Iv Contrast (09/18/17 14:03) Iohexol 350 Inj (Omnipaque 350 Inj) (09/18/17 14:47) Labs Laboratory Tests Test 09/18/17 13:15 White Blood Count 11.6 TH/MM3 Red Blood Count 4.17 MIL/MM3 Hemoglobin 12.1 GM/DL Hematocrit 37.4 % Mean Corpuscular Volume 89.8 FL Mean Corpuscular Hemoglobin 29.1 PG Mean Corpuscular Hemoglobin Concent 32.5 % Red Cell Distribution Width 14.1 % Platelet Count 271 TH/MM3 Mean Platelet Volume 7.2 FL Neutrophils (%) (Auto) 95.3 % Lymphocytes (%) (Auto) 1.9 % Monocytes (%) (Auto) 2.7 % Eosinophils (%) (Auto) 0.0 % Basophils (%) (Auto) 0.1 % Neutrophils # (Auto) 11.1 TH/MM3 Lymphocytes # (Auto) 0.2 TH/MM3 Monocytes # (Auto) 0.3 TH/MM3 Eosinophils # (Auto) 0.0 TH/MM3 Basophils # (Auto) 0.0 TH/MM3 CBC Comment DIFF FINAL Differential Comment Blood Urea Nitrogen 15 MG/DL Creatinine 0.54 MG/DL Random Glucose 135 MG/DL Calcium Level 8.5 MG/DL Sodium Level 138 MEQ/L Potassium Level 3.5 MEQ/L Chloride Level 97 MEQ/L Carbon Dioxide Level 36.3 MEQ/L Anion Gap 5 MEQ/L Estimat Glomerular Filtration Rate 145 ML/MIN [facility] Medical Decision Making Medical Screen Exam Complete: Yes Emergency Medical Condition: Yes Differential Diagnosis Posterior lateral rib fracture versus kidney injury versus contusion Narrative Course This is a 86-year-old male with a history of lung cancer bilaterally, who presents here after having a mechanical fall in the bathroom. Patient struck his left flank and left posterior ribs. CT scan of the and pelvis and thorax show no evidence of acute injury. He does have the masses as per his lung cancer. The patient was given 0.25 mg of IVD Dilaudid. He states it did help. I've offered to send him home with Dilaudid for pain control at home. He is a hospice patient and therefore we'll have hospice nurses available. He is amenable to this. His daughter and are at the bedside and all agreeable with him going home with the pain medicine. Diagnosis Primary Impression: left flank contusion. Additional Impressions: left posterior lateral rib contusion. Lung mass Additional Instructions: Ice as needed for 24-36 hrs. Then moist heat. Med/Other Pt SpecificInfo: Prescription(s) given Scripts Hydromorphone Liq (Dilaudid Liq) 1 Mg/Ml Liq 0.5 MG PO Q6H Y for Pain Management, #20 ML 0 Refills Prov: Floyd Romero MD 09/18/17 Disposition: 01 DISCHARGE HOME Condition: Stable Floyd Romero MD Sep 18, 2017 13:34
[2017-09-18 13:53] LABS: AUTOMATED NEUTROPHIL # 11.1 TH/MM3 (1.8-7.7); BASOPHIL % 0.1 % (0.0-2.0); HEMATOCRIT 37.4 % (39.0-51.0); HEMO FLAGS DIFF FINAL; LYMPH % 1.9 % (9.0-44.0); LYMPHOCYTE # 0.2 TH/MM3 (1.0-4.8); MEAN CELL VOLUME 89.8 FL (80.0-100.0); MEAN CORPUSCULAR HEMOGLOBIN 29.1 PG (27.0-34.0); MEAN CORPUSCULAR HGB CONC 32.5 % (32.0-36.0); MONO % 2.7 % (0.0-8.0); NEUT % 95.3 % (16.0-70.0); PLATELET COUNT 271 TH/MM3 (150-450); RED BLOOD COUNT 4.17 MIL/MM3 (4.50-5.90); RED CELL DISTRIBUTION WIDTH 14.1 % (11.6-17.2); WHITE BLOOD COUNT 11.6 TH/MM3 (4.0-11.0)
[2017-09-18 14:08] LABS: BICARBONATE 36.3 MEQ/L (21.0-32.0); POTASSIUM 3.5 MEQ/L (3.5-5.1)
[2017-09-18] MEDS ORDERED: IOHEXOL 350 MG/ML 10 ML VIAL (for RAD DIAG) IVCONTRAST ONE (14:47)
--- NOTE | 2017-09-18 14:55 | RADRPT ---
EXAM DATE/TIME: 09/18/2017 14:34 [facility] COMPARISON: CT PULMONARY ANGIOGRAM, May 27, 2016, 14:56. INDICATIONS : Patient fell, dyspnea IV CONTRAST: 93 cc Omnipaque 350 (iohexol) IV ; Cumulative dose for multiple exams. RADIATION DOSE: 5.97 CTDIvol (mGy) ; Combined studies - Thorax/Abdomen/Pelvis MEDICAL HISTORY : Chronic obstructive pulmonary disease. SURGICAL HISTORY : Cholecystectomy. ENCOUNTER: Initial ACUITY: 1 day PAIN SCALE: 3/10 LOCATION: chest TECHNIQUE: Volumetric scanning of the chest was performed. Using automated exposure control and adjustment of t he mA and/or kV according to patient size, radiation dose was kept as low as reasonably achievable to obtain optimal diagnostic quality images. DICOM format image data is available electronically for review and comparison. Follow-up recommendations for detected pulmonary nodules are based at a minimum on nodule size and pa tient risk factors according to Fleischner Society Guidelines. FINDINGS: The lungs are markedly hyperinflated. Minimal airspace disease is present in the right upper lobe. Consolidative consolidative masslike density seen in the left lower lobe measuring 3.4 cm with some c entral cavitation suspicious for neoplastic process. There is no axillary adenopathy. There is abnormal mediastinal adenopathy particularly in AP window with the largest node measuring 2 cm. The marked coronary calcifications CONCLUSION: 3.9 CM Mass like opacity left lower lobe suspicious for neoplastic process. This would be amenable t o percutaneous biopsy I do not see rib fracture. George Alves MD FACR on September 18, 2017 at 14:50 Board Certified Radiologist. This report was verified electronically.
--- NOTE | 2017-09-18 15:10 | RADRPT ---
EXAM DATE/TIME: 09/18/2017 14:34 [facility] COMPARISON: No previous studies available for comparison. INDICATIONS : Patient fell in bathroom IV CONTRAST: 93 cc Omnipaque 350 (iohexol) IV ORAL CONTRAST: No oral contrast ingested. RADIATION DOSE: 5.97 CTDIvol (mGy) MEDICAL HISTORY : Chronic obstructive pulmonary disease. SURGICAL HISTORY : Cholecystectomy. ENCOUNTER: Initial ACUITY: 1 day PAIN SCALE: 3/10 LOCATION: abdomen TECHNIQUE: Volumetric scanning of the abdomen and pelvis was performed. Using automated exposure control and ad justment of the mA and/or kV according to patient size, radiation dose was kept as low as reasonably achievable to obtain optimal diagnostic quality images. DICOM format image data is available electro nically for review and comparison. FINDINGS: 1.6 there are nodule left lung base. Malignancy not excluded. Scattered small well-circumscribed low-density lesions left lobe liver probably cysts. 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 There is no free fluid There is no free air Prostate is prominent. Large apparent right hydrocele is evident. There are degenerative changes in the lumbar spine. That fracture is not appreciated. CONCLUSION: Negative for acute traumatic injury 1.6 there are mass left lung base, malignancy not excluded. Presumed hepatic cysts Prominent prostate. 2.7 cm distal abdominal aorta.. George Alves MD FACR on September 18, 2017 at 15:06 Board Certified Radiologist. This report was verified electronically.
[2017-09-18] MEDS ORDERED: DILA1LIQ PO (15:44)
[2017-09-18 16:00] VITALS: BP 128/75; PULSE 109; RESP 24; O2SAT 97
== END 2017-09-18 17:57 | disposition home or self-care (01) ==
LOC: NEPC 12:33
DX: S30.1XXA Contusion of abdominal wall, initial encounter (principal); S20.212A Contusion of left front wall of thorax, initial encounter; R91.8 Other nonspecific abnormal finding of lung field; M19.90 Unspecified osteoarthritis, unspecified site; J44.9 Chronic obstructive pulmonary disease, unspecified; W18.00XA Striking against unspecified object with subsequent fall, initial encounter; Z79.899 Other long term (current) drug therapy; Z85.118 Personal history of other malignant neoplasm of bronchus and lung
CPT/HCPCS: 71260; 74177; 80048; 85025; 96374; 96375; 99285; J1170; J2405; Q9967